=== PATIENT | female | born 1965 | race Caucasian/White ===

== ENCOUNTER 2021-02-01 11:08 | Emergency (ER) | payer BC ==
[~2021-02-01] VITALS: Ht 165.1 cm; Wt 74.5 kg
--- NOTE | 2021-02-01 12:21 | NUR ---
PT TO ROOM FROM LOBBY.
[2021-02-01] MEDS ORDERED: KETOROLAC 30 MG/1 ML ONE (12:40)
[2021-02-01] MEDS ORDERED: KETOROLAC 30 MG/1 ML IM ONE (13:00)
--- NOTE | 2021-02-01 13:53 | NUR ---
REPORT GIVEN TO DARIAN MADRIGAL
[2021-02-01 15:50] VITALS: BP 127/81
== END 2021-02-01 15:52 | disposition home or self-care (01) ==
LOC: ED 15:45
DX: M25.562 Pain in left knee (principal)
CPT/HCPCS: 29505; 73564; 73700; 96372; 99284; J1885